=== PATIENT | female | born 1965 | race Two or more races ===

== ENCOUNTER 2024-06-17 09:00 | Inpatient (IN) | payer OTHER ==
[~2024-06-17] VITALS: Ht 160 cm; Wt 94.8 kg
[2024-06-17] MEDS ORDERED: GLUMETZA500 MG PO (09:58)
[2024-06-17] MEDS ORDERED: GLIMEPIRIDE1 MG (09:58)
[2024-06-17] MEDS ORDERED: ZETIA10 MG PO (09:59)
[2024-06-17] MEDS ORDERED: LYRICA20 MG/1 ML (09:59)
[2024-06-17] MEDS ORDERED: TENORMIN25 MG PO (09:59)
[2024-06-17] MEDS ORDERED: FENOFIBRATE48 MG PO (10:00)
[2024-06-17] MEDS ORDERED: DICY20TA PO (10:00)
[2024-06-17 10:01] VITALS: BP 142/86
[2024-06-17 10:05] VITALS: BP 117/79
[2024-06-17 10:08] LABS: PH,URINE 5.5 (5.0-8.0); URINE APPEARANCE Clear; URINE BILIRRUBIN Negative (NEGATIVE); URINE BLOOD Negative; URINE COLOR Yellow; URINE GLUCOSE Negative (NEGATIVE); URINE KETONE Negative (NEGATIVE); URINE LEUKOCYTE Negative; URINE NITRATE Negative; URINE PROTEIN Negative (NEGATIVE); URINE UROBILINOGEN 0.2 E.U./dl
[2024-06-17 10:10] LABS: URINE BACTERIA 163.9 uL (0.0-1933); URINE EPITHELIAL CELLS 8.5 uL (0.0-38.8); URINE WBC 5.5 uL (0.0-23.2)
[2024-06-17 10:11] LABS: HEMATOCRIT 37.7 % (36.0-45.00); HEMOGLOBIN 12.4 g/dL (12.0-15.00); MEAN CELL VOLUME 78.8 fL (80.00-100.00); MEAN CORPUSCULAR HGB CONC 32.9 g/dl (32.0-36.0); PLATELET COUNT 419 K/uL (150-450); RED BLOOD COUNT 4.79 M/uL (4.00-6.00); RED CELL DISTRIBUTION WIDTH 15.7 % (11.5-14.5)
[2024-06-17 10:31] LABS: URINE CAST 0.88 uL (0.0-1.40); URINE RBC 1.9 uL (0.0-20.8)
[2024-06-17 10:48] LABS: INR 1.01; PARTIAL THROMBOPLASTIN TIME 25.4 SECONDS (22.0-34.0)
[2024-06-17 11:10] LABS: ALBUMIN 4.1 gm/dL (3.4-5.0); BILIRUBIN TOTAL 0.48 mg/dL (0.3-1.2); CREATININE SERUM 0.73 mg/dL (0.55-1.02); GFR 81.88; GLOBULINA 4.4 G/DL (2.4-3.5); POTASSIUM 4.58 mEq/L (3.5-5.1); TOTAL PROTEIN 8.5 gm/dL (6.4-8.2)
[2024-06-22] MEDS ORDERED: ONDANSETRON HCL 2 MG/ML VIAL IV PRN (11:30)
[2024-06-22] MEDS ORDERED: OxyCODONE HCL/APAP UD (PERCOCET) PO PRN (11:30)
[2024-06-22] MEDS ORDERED: CEFAZOLIN SODIUM 1,000 MG VIAL IV SCH (12:00)
[2024-06-22] MEDS ORDERED: MORPHINE SULFATE 4 MG/ML CARTRIDGE IV SCH (12:00)
[2024-06-22] MEDS ORDERED: CEFAZOLIN SODIUM 1,000 MG VIAL IV ONE (12:45)
[2024-06-22] MEDS ORDERED: ISOPROPYL ALCOHOL 30 ML OUNCE TOP ONE (12:45)
[2024-06-22] MEDS ORDERED: KETOROLAC TROMETHAMINE 60 MG VIAL IM ONE (12:45)
[2024-06-22] MEDS ORDERED: VANCOMYCIN HCL 1,000 MG VIAL IR ONE (12:45)
[2024-06-22] MEDS ORDERED: TRANEXAMIC ACID 100MG/1ML (1000MG) AMPUL IV ONE ×2 (12:45)
[2024-06-22] MEDS ORDERED: EPINEPHRINE HCL/PF 1 MG/ML AMPUL IR ONE (12:45)
[2024-06-22] MEDS ORDERED: MORPHINE SULFATE 4 MG/ML VIAL IV ONE (12:45)
[2024-06-22] MEDS ORDERED: ENALAPRILAT DIHYDRATE 2.5 MG/2 ML VIAL IV PRN (14:45)
[2024-06-22] MEDS ORDERED: INSULIN LISPRO 1,000 UNIT/10 ML UNITS SUBCUTANEO PRN (14:45)
[2024-06-22] MEDS ORDERED: DEXTROSE 50 % IN WATER 0.5 G/ML DISP.SYRIN IV PRN (14:45)
[2024-06-22 18:06] VITALS: BP 142/86
[2024-06-22 20:00] VITALS: BP 127/85
[2024-06-22] MEDS ORDERED: ORPHENADRINE CITRATE 100 MG TABLET PO SCH (21:00)
[2024-06-22] MEDS ORDERED: GABAPENTIN 100 MG CAPSULE PO SCH (21:00)
[2024-06-23 01:13] VITALS: BP 124/78
[2024-06-23 03:14] LABS: HEMATOCRIT 31.8 % (36.0-45.00); HEMOGLOBIN 10.5 g/dL (12.0-15.00); MEAN CELL VOLUME 78.3 fL (80.00-100.00); MEAN CORPUSCULAR HEMOGLOBIN 25.8 pg (27.00-32.0); MEAN CORPUSCULAR HGB CONC 32.9 g/dl (32.0-36.0); PLATELET COUNT 317 K/uL (150-450); RED BLOOD COUNT 4.07 M/uL (4.00-6.00); RED CELL DISTRIBUTION WIDTH 15.6 % (11.5-14.5)
[2024-06-23 08:00] VITALS: BP 142/80
[2024-06-23] MEDS ORDERED: APIXABAN 2.5 MG TABLET PO SCH (09:00)
[2024-06-23] MEDS ORDERED: ATENOLOL 25 MG TABLET PO SCH (09:00)
[2024-06-23] MEDS ORDERED: ACETAMINOPHEN 500 MG GEL..CAP PO PRN (10:45)
[2024-06-23] MEDS ORDERED: SOD FERRIC GLUC COMPLX/SUCROSE 62.5 MG/5 ML AMPUL IV SCH (12:50)
[2024-06-23] MEDS ORDERED: Cyanocobalamin/Mecobalamin 1 TAB.SL SL SCH (12:51)
[2024-06-23 16:02] VITALS: BP 137/83
[2024-06-23 16:04] LABS: ALBUMIN 3.3 gm/dL (3.4-5.0); BILIRUBIN TOTAL 0.65 mg/dL (0.3-1.2); CALCIUM 8.7 mg/dL (8.5-10.1); CREATININE SERUM 0.66 mg/dL (0.55-1.02); GFR 91.98; GLOBULINA 3.7 G/DL (2.4-3.5); POTASSIUM 4.44 mEq/L (3.5-5.1)
[2024-06-23] MEDS ORDERED: VITAMIN B COMPLEX 1 EACH PO SCH (17:00)
[2024-06-24 01:05] LABS: HEMATOCRIT 30.4 % (36.0-45.00); MEAN CELL VOLUME 78.2 fL (80.00-100.00); MEAN CORPUSCULAR HEMOGLOBIN 26.4 pg (27.00-32.0); MEAN CORPUSCULAR HGB CONC 33.8 g/dl (32.0-36.0); PLATELET COUNT 289 K/uL (150-450); RED BLOOD COUNT 3.89 M/uL (4.00-6.00); RED CELL DISTRIBUTION WIDTH 15.7 % (11.5-14.5)
[2024-06-24 01:12] VITALS: BP 150/90
[2024-06-24 01:46] LABS: HEMOGLOBIN 10.3 g/dL (12.0-15.00)
[2024-06-24 08:00] VITALS: BP 124/74
[2024-06-24] MEDS ORDERED: NORFLEX100MG PO (11:52)
[2024-06-24] MEDS ORDERED: GABAPENTIN100 MG PO (11:52)
[2024-06-24] MEDS ORDERED: ELIQUIS2.5 MG PO (11:52)
[2024-06-24] MEDS ORDERED: OXYC1TAB9 PO (11:53)
[2024-06-24] MEDS ORDERED: FAMOTIDINE/PF 20 MG/2 ML VIAL IV PUSH STA (13:24)
[2024-06-24 16:08] VITALS: BP 126/76; O2SAT 97
[2024-06-24] MEDS ORDERED: PANTOPRAZOLE SODIUM 40 MG/VIAL VIAL IV PUSH STA (17:20)
== END 2024-06-24 19:15 | disposition home or self-care (01) | DRG 470 ==
LOC: O/R 06-22 06:26 → OB/GYN 06-22 06:26 → SURG 06-22 09:00 → OB/GYN 06-22 14:36
PROVIDERS: ADMIT Orthopaedic Surgery; ATTEND Orthopaedic Surgery
PROC: 0SRC0JZ Replacement of Right Knee Joint with Synthetic Substitute, Open Approach (ICD-10-PCS; principal; 2024-06-22 11:30)
DX: M17.11 Unilateral primary osteoarthritis, right knee (principal); D62 Acute posthemorrhagic anemia; M85.661 Other cyst of bone, right lower leg; I10 Essential (primary) hypertension; E78.5 Hyperlipidemia, unspecified

== ENCOUNTER → 2024-11-24 07:18 | Outpatient (CLI) | payer OTHER ==
[~2024-11-24 07:18] MED LIST: DICY20TA PO; ELIQUIS2.5 MG PO; FENOFIBRATE48 MG PO; GABAPENTIN100 MG PO; GLIMEPIRIDE1 MG; GLUMETZA500 MG PO; LYRICA20 MG/1 ML; NORFLEX100MG PO; OXYC1TAB9 PO; TENORMIN25 MG PO; ZETIA10 MG PO
== END | disposition home or self-care (01) ==
LOC: NUCLEAR 07:00
PROVIDERS: ATTEND Internal Medicine Gastroenterology
DX: K31.84 Gastroparesis (principal)
CPT/HCPCS: 78264; A9541

== ENCOUNTER 2025-02-14 08:15 | Inpatient (IN) | payer OTHER ==
[~2025-02-14] VITALS: Ht 160 cm; Wt 93.4 kg
[2025-02-14] MEDS ORDERED: LYRICA20 MG/1 ML PO (08:51)
[2025-02-14 09:22] VITALS: BP 136/88
[2025-02-14 09:23] VITALS: BP 140/80
[2025-02-14 09:29] LABS: URINE APPEARANCE Clear; URINE BILIRRUBIN Negative (NEGATIVE); URINE BLOOD Negative; URINE COLOR Yellow; URINE GLUCOSE Negative (NEGATIVE); URINE KETONE Negative (NEGATIVE); URINE LEUKOCYTE Trace; URINE NITRATE Negative; URINE PROTEIN Negative (NEGATIVE); URINE UROBILINOGEN 0.2 E.U./dl
[2025-02-14 09:33] LABS: URINE BACTERIA 287.9 uL (0.0-1933); URINE EPITHELIAL CELLS 20.1 uL (0.0-38.8); URINE WBC 6.9 uL (0.0-23.2)
[2025-02-14 09:36] LABS: BASO % 0.5 % (0.1-1.2); EOS # 0.11 (0.04-0.54); EOS % 1.2 % (0.7-7.0); LYMPH # 1.79 (1.18-3.74); LYMPH % 18.7 % (19.3-53.1); MEAN PLATELET VOLUME 9.70 fl (9.4-12.4); MONO # 0.62 (0.24-0.82); MONO % 6.5 % (4.7-12.5); NEUT # 6.96 (1.56-6.13); NEUT % 72.8 % (34.0-71.1); RED CELL DISTRIBUTION WIDTH 14.6 % (11.6-14.4)
[2025-02-14 09:38] LABS: URINE CAST 0.00 uL (0.0-1.40); URINE RBC 1.4 uL (0.0-20.8)
[2025-02-14 10:01] LABS: INR 0.96
[2025-02-14 10:20] LABS: ALT/SGPT 53.0 U/L (12-78); AST/SGOT 29.0 U/L (15-37); BILIRUBIN TOTAL 0.42 mg/dL (0.3-1.2); BUN CREA RATIO 23.0 (7.0-25.0); CREATININE SERUM 0.65 mg/dL (0.55-1.02); GFR 93.29; GLOBULINA 4.1 G/DL (2.4-3.5); GLUCOSE FASTING 93.0 mg/dL (65-100); OSMOLALITY SERUM 284.0 MOSM/KG (275-295)
[2025-02-22] MEDS ORDERED: CEFAZOLIN SODIUM 1,000 MG VIAL ONE ×3 (07:46→18:10)
[2025-02-22] MEDS ORDERED: TRANEXAMIC ACID 100MG/1ML (1000MG) AMPUL ONE (07:46)
[2025-02-22] MEDS ORDERED: ONDANSETRON HCL 2 MG/ML VIAL IV PRN (10:00)
[2025-02-22] MEDS ORDERED: VANCOMYCIN HCL 1,000 MG VIAL ONE (10:01)
[2025-02-22] MEDS ORDERED: KETOROLAC TROMETHAMINE 60 MG VIAL IM ONE (10:01)
[2025-02-22] MEDS ORDERED: BUPIVACAINE HCL 30 ML VIAL IJ ONE (11:30)
[2025-02-22] MEDS ORDERED: LIDOCAINE HCL 1%/EPINEPHRINE 20ML VIAL IJ ONE (11:30)
[2025-02-22] MEDS ORDERED: CEFAZOLIN SODIUM 1,000 MG VIAL IV SCH (12:00)
[2025-02-22] MEDS ORDERED: OxyCODONE HCL 5 MG TABLET (ROXICODONE) PO PRN (12:00)
[2025-02-22] MEDS ORDERED: MORPHINE SULFATE 4 MG/ML VIAL IV SCH (12:00)
[2025-02-22 19:09] VITALS: BP 140/80
[2025-02-22] MEDS ORDERED: GABAPENTIN 100 MG CAPSULE PO SCH (21:00)
[2025-02-22] MEDS ORDERED: ORPHENADRINE CITRATE 100 MG TABLET PO SCH (21:00)
[2025-02-23] VITALS: BP 142/83
[2025-02-23 01:27] LABS: BASO % 0.2 % (0.1-1.2); EOS # 0.05 (0.04-0.54); EOS % 0.4 % (0.7-7.0); LYMPH # 1.78 (1.18-3.74); LYMPH % 13.9 % (19.3-53.1); MEAN PLATELET VOLUME 9.70 fl (9.4-12.4); MONO # 0.95 (0.24-0.82); MONO % 7.4 % (4.7-12.5); NEUT # 9.88 (1.56-6.13); NEUT % 77.5 % (34.0-71.1); RED CELL DISTRIBUTION WIDTH 14.2 % (11.6-14.4)
[2025-02-23] MEDS ORDERED: OxyCODONE HCL 5 MG TABLET (ROXICODONE) PO SCH (08:29)
[2025-02-23 08:51] VITALS: BP 168/98
[2025-02-23] MEDS ORDERED: RIVAROXABAN 10 MG TAB PO SCH (09:00)
[2025-02-23] MEDS ORDERED: MORPHINE SULFATE 4 MG/ML CARTRIDGE IV SCH (09:00)
[2025-02-23] MEDS ORDERED: OxyCODONE HCL 5 MG TABLET (ROXICODONE) PO PRN (09:45)
[2025-02-23 12:46] LABS: COVID-19 AG NEGATIVE (NEGATIVE)
[2025-02-23] MEDS ORDERED: Cyanocobalamin/Mecobalamin 1 TAB.SL SL NR (15:30)
[2025-02-23] MEDS ORDERED: hydrALAZINE HCL 20 MG VIAL IV PRN (16:45)
[2025-02-23] MEDS ORDERED: INSULIN LISPRO 1,000 UNIT/10 ML UNITS SUBCUTANEO PRN (16:45)
[2025-02-23] MEDS ORDERED: DEXTROSE 50 % IN WATER 0.5 G/ML DISP.SYRIN IV PRN (16:45)
[2025-02-23] MEDS ORDERED: SOD FERRIC GLUC COMPLX/SUCROSE 62.5 MG/5 ML AMPUL IV SCH (17:00)
[2025-02-23] MEDS ORDERED: ATENOLOL 25 MG TABLET PO NR (17:15)
[2025-02-23 17:38] VITALS: BP 150/83
[2025-02-24 00:44] VITALS: BP 140/80
[2025-02-24 02:35] LABS: BASO % 0.3 % (0.1-1.2); EOS # 0.27 (0.04-0.54); EOS % 2.2 % (0.7-7.0); LYMPH # 1.32 (1.18-3.74); LYMPH % 10.5 % (19.3-53.1); MEAN PLATELET VOLUME 9.70 fl (9.4-12.4); MONO # 0.98 (0.24-0.82); MONO % 7.8 % (4.7-12.5); NEUT # 9.84 (1.56-6.13); NEUT % 78.6 % (34.0-71.1); RED CELL DISTRIBUTION WIDTH 13.7 % (11.6-14.4)
[2025-02-24 03:03] LABS: ALT/SGPT 37.0 U/L (12-78); AST/SGOT 21.0 U/L (15-37); BILIRUBIN TOTAL 0.72 mg/dL (0.3-1.2); BUN CREA RATIO 14.0 (7.0-25.0); CREATININE SERUM 0.57 mg/dL (0.55-1.02); GFR 108.56; GLOBULINA 3.5 G/DL (2.4-3.5); GLUCOSE FASTING 127.0 mg/dL (65-100); OSMOLALITY SERUM 281.0 MOSM/KG (275-295)
[2025-02-24 08:50] VITALS: BP 148/82
[2025-02-24] MEDS ORDERED: Cyanocobalamin/Mecobalamin 1 TAB.SL SL SCH (09:00)
[2025-02-24] MEDS ORDERED: ATENOLOL 25 MG TABLET PO SCH (09:00)
[2025-02-24] MEDS ORDERED: GABAPENTIN100 MG PO (12:01)
[2025-02-24] MEDS ORDERED: NORFLEX100MG PO (12:01)
[2025-02-24] MEDS ORDERED: XARELTO10 MG PO (12:01)
[2025-02-24] MEDS ORDERED: PERCOCET 5-3251 EACH PO (12:02)
== END 2025-02-24 18:14 | DRG 470 ==
LOC: OB/GYN 02-22 07:00 → O/R 02-22 07:00 → SURG 02-22 07:00 → OB/GYN 02-22 15:10
PROVIDERS: ADMIT Orthopaedic Surgery; ATTEND Orthopaedic Surgery
PROC: 0SRD0JZ Replacement of Left Knee Joint with Synthetic Substitute, Open Approach (ICD-10-PCS; principal; 2025-02-22 07:00)
DX: M17.12 Unilateral primary osteoarthritis, left knee (principal); D62 Acute posthemorrhagic anemia; M85.662 Other cyst of bone, left lower leg; I10 Essential (primary) hypertension; E11.9 Type 2 diabetes mellitus without complications; Z79.84 Long term (current) use of oral hypoglycemic drugs